=== PATIENT | male | born 1965 | race Hispanic/Latino ===

== ENCOUNTER 2018-03-26 15:10 | Emergency (ER) | payer MEDICAID ==
[~2018-03-26 15:10] MED LIST: ESOM20CA31 PO
[2018-03-26] MEDS ORDERED: SODIUM CHLORIDE 0.9% 1000ML 1,000 ML IV ONE (15:34)
[2018-03-26] MEDS ORDERED: ACETAMINOPHEN EXTRA STRENGTH 500 MG TABLET ONE (15:35)
[2018-03-26 15:49] LABS: BASOPHILS % (AUTO) 0.3 % (0.0-5.0); HEMATOCRIT 40.5 % (42-54); LYMPHOCYTES % (AUTO) 5.1 % (21.0-51.0); MEAN CORPUSCULAR HEMOGLOBIN 32.8 pg (27.0-33.0); MEAN CORPUSCULAR HGB CONC 34.2 g/dL (32.0-36.0); MEAN CORPUSCULAR VOLUME 95.8 fL (79-99); MONOCYTES % (AUTO) 4.8 % (3.0-13.0); NEUTROPHILS % (AUTO) 89.8 % (40.0-77.0); PLATELET COUNT (AUTO) 236 K/uL (130-400); RED BLOOD CELL COUNT(AUTO) 4.23 MIL/uL (4.50-6.20); RED CELL DISTRIBUTION WIDTH 13.5 % (11.0-15.5)
[2018-03-26 15:51] LABS: CARBON DIOXIDE 26 mmol/L (21-32); CHLORIDE 103 mmol/L (101-111); CREATININE 1.1 mg/dL (0.5-1.5); GLOMERULAR FILTR. RATE CALC 74 mL/min (>60); GLUCOSE,RANDOM 142 mg/dL (70-105); INR 1.02 (0.85-1.15); PARTIAL THROMBOPLASTIN TIME 24.4 SEC (26.3-35.5); POTASSIUM 3.4 mmol/L (3.5-5.1); PROTHROMBIN TIME 10.7 SEC (9.6-11.6); SODIUM SERUM 139 mmol/L (136-145); UREA NITROGEN, BLOOD 8 mg/dL (7-18)
[2018-03-26 16:08] LABS: RAPID GROUP A STREP NEGATIVE (NEGATIVE)
[2018-03-26 16:12] LABS: ALANINE AMINOTRANSFERASE 23 U/L (12-78); ALBUMIN 3.2 g/dL (3.5-5.0); ASPARTATE AMINOTRANSFERASE 18 U/L (10-37); BILIRUBIN,TOTAL 0.2 mg/dL (0.2-1.0); CREATINE KINASE, TOTAL 102 U/L (21-232); MYOGLOBIN 35 ng/mL (10-92); TROPONIN I < 0.04 ng/mL (0.00-0.06)
[2018-03-26 16:22] LABS: APPEARANCE,URINE Clear (CLEAR); BILIRUBIN,URINE Negative (NEGATIVE); COLOR,URINE Dark Yellow (YELLOW); GLUCOSE, URINE (UA) Negative (NEGATIVE); KETONES,URINE Trace mg/dL (NEGATIVE); LEUKOCYTE ESTERASE ,URINE Negative (NEGATIVE); NITRATE,URINE Negative (NEGATIVE); OCCULT BLOOD,URINE Negative (NEGATIVE); PROTEIN,URINE POS 1+ (NEGATIVE)
[2018-03-26 16:56] LABS: BACTERIA,URINE Rare /HPF (None Seen); MUCUS,URINE Few LPF (None Seen); RBC,URINE None Seen /HPF (0-1); SQUAMOUS EPITHELIAL CELL,UR 0-2 /HPF (0-2); WBC,URINE 0-1 /HPF (0-1)
== END 2018-03-26 17:46 | disposition home or self-care (01) ==
LOC: EDH 15:10
DX: A08.4 Viral intestinal infection, unspecified (principal); R50.9 Fever, unspecified; I10 Essential (primary) hypertension; M19.90 Unspecified osteoarthritis, unspecified site; Z72.0 Tobacco use
CPT/HCPCS: 36415; 71045; 80053; 81001; 82550; 83605; 83874; 84484; 85025; 85610; 85730; 87040 ×2; 87088; 87804 ×2; 87880; 93005; 96360; 99285; J7030

== ENCOUNTER → 2019-01-26 | Outpatient (CLI) | payer MEDICAID | END | disposition home or self-care (01) | LOC: SHCH 08:02 | PROVIDERS: ATTEND Internal Medicine Cardiovascular Disease | DX: I11.9 Hypertensive heart disease without heart failure (principal) | CPT/HCPCS: 93306 ==

== ENCOUNTER 2019-06-28 20:27 | Emergency (ER) | payer MEDICAID ==
[2019-06-28] MEDS ORDERED: ASPIRIN 325 MG TABLET ONE (20:44)
[2019-06-28 20:47] LABS: BASOPHILS % (AUTO) 0.4 % (0.0-5.0); HEMATOCRIT 44.4 % (42-54); LYMPHOCYTES % (AUTO) 27.9 % (21.0-51.0); MEAN CORPUSCULAR HGB CONC 31.8 g/dL (32.0-36.0); MEAN CORPUSCULAR VOLUME 97.6 fL (79-99); MONOCYTES % (AUTO) 7.6 % (3.0-13.0); NEUTROPHILS % (AUTO) 61.7 % (40.0-77.0); PLATELET COUNT (AUTO) 254 K/uL (130-400); RED BLOOD CELL COUNT(AUTO) 4.55 MIL/uL (4.50-6.20); RED CELL DISTRIBUTION WIDTH 13.1 % (11.0-15.5); WHITE BLOOD COUNT (AUTO) 9.2 K/uL (4.8-10.8)
[2019-06-28 21:01] LABS: INR 0.99 (0.85-1.15); PARTIAL THROMBOPLASTIN TIME 23.8 SEC (26.3-35.5); PROTHROMBIN TIME 10.4 SEC (9.6-11.6)
[2019-06-28 21:08] LABS: POTASSIUM 4.1 mmol/L (3.5-5.1)
[2019-06-28 21:13] LABS: ALBUMIN 3.2 g/dL (3.5-5.0); BILIRUBIN,TOTAL 0.1 mg/dL (0.2-1.0); TOTAL PROTEIN, SERUM 6.4 g/dL (6.0-8.3)
[2019-06-28 21:30] LABS: APPEARANCE,URINE Clear (CLEAR); BILIRUBIN,URINE Negative (NEGATIVE); COLOR,URINE Yellow (YELLOW); GLUCOSE, URINE (UA) Negative (NEGATIVE); KETONES,URINE Trace mg/dL (NEGATIVE); LEUKOCYTE ESTERASE ,URINE Negative (NEGATIVE); NITRATE,URINE Negative (NEGATIVE); OCCULT BLOOD,URINE Negative (NEGATIVE); PH,URINE 5.5 (5.0-8.0); PROTEIN,URINE Negative (NEGATIVE)
[2019-06-28 21:37] LABS: AMPHET/METH SCREEN,URINE NEGATIVE (NEGATIVE); BARBITURATE SCREEN, URINE NEGATIVE (NEGATIVE); BENZODIAZEPINES SCREEN,URINE NEGATIVE (NEGATIVE); CANNABINOID SCREEN,URINE NEGATIVE (NEGATIVE); COCAINE SCREEN,URINE POSITIVE (NEGATIVE); OPIATE SCREEN,URINE NEGATIVE (NEGATIVE); PHENCYCLIDINE SCREEN,URINE NEGATIVE (NEGATIVE)
[2019-06-28 22:04] LABS: BACTERIA,URINE Few /HPF (None Seen); MUCUS,URINE Moderate LPF (None Seen); SQUAMOUS EPITHELIAL CELL,UR 0-2 /HPF (0-2)
== END 2019-06-28 21:36 | disposition left against medical advice (07) ==
LOC: EDH 20:27
DX: F14.10 Cocaine abuse, uncomplicated (principal); I10 Essential (primary) hypertension; M19.90 Unspecified osteoarthritis, unspecified site; Z72.0 Tobacco use
CPT/HCPCS: 36415; 71045; 80053; 80305; 81001; 82550; 84484; 85025; 85610; 85730; 93005

== ENCOUNTER → 2019-07-23 | Outpatient (CLI) | payer MEDICAID | END | disposition home or self-care (01) | LOC: SHCH 07:59 | PROVIDERS: ATTEND Internal Medicine Cardiovascular Disease | DX: R09.89 Other specified symptoms and signs involving the circulatory and respiratory systems (principal) | CPT/HCPCS: 93880 ==

== ENCOUNTER → 2023-03-14 | Outpatient (CLI) | payer MEDICAID ==
[~2023-03-14] MED LIST changes: +REGADENOSON 0.4 MG/5 ML PF SYG IVP ONE
== END | disposition home or self-care (01) ==
LOC: SHCH 09:11
PROVIDERS: ATTEND Internal Medicine Cardiovascular Disease
DX: R94.39 Abnormal result of other cardiovascular function study (principal); I50.22 Chronic systolic (congestive) heart failure; I51.7 Cardiomegaly
CPT/HCPCS: 78452; 96374; 93017; J2785; A9500 ×2

== ENCOUNTER 2023-03-31 06:07 | Day surgery (SDC) | payer MEDICAID ==
[2023-03-30 09:06] VITALS: BP 107/70; PULSE 80; RESP 17
[2023-03-30 09:18] LABS: BASOPHILS # (AUTO) 0.04 K/uL (0.00-0.20); BASOPHILS % (AUTO) 0.5 % (0.0-5.0); EOSINOPHILS % (AUTO) 2.6 % (0.0-8.0); IMMATURE GRANULOCYTE ABSOLUTE 0.03 K/uL (0-1); LYMPHOCYTES # (AUTO) 1.9 K/uL (1.0-4.8); LYMPHOCYTES % (AUTO) 23.7 % (21.0-51.0); MEAN CORPUSCULAR HGB CONC 32.6 g/dL (32.0-36.0); MEAN CORPUSCULAR VOLUME 101.1 fL (79-99); MONOCYTES # (AUTO) 0.7 K/uL (0.1-1.0); MONOCYTES % (AUTO) 9.1 % (3.0-13.0); NEUTROPHILS % (AUTO) 63.7 % (40.0-77.0); PLATELET COUNT (AUTO) 259 K/uL (130-400); RED BLOOD CELL COUNT(AUTO) 4.55 MIL/uL (4.50-6.20); RED CELL DISTRIBUTION WIDTH 14.2 % (11.0-15.5); WHITE BLOOD COUNT (AUTO) 7.8 K/uL (4.8-10.8)
[2023-03-30 09:27] LABS: POTASSIUM 4.3 mmol/L (3.5-5.1)
[2023-03-30 09:29] LABS: INR 0.99 (0.85-1.15); PROTHROMBIN TIME 11.5 SEC (9.6-11.6)
[2023-03-30 09:30] LABS: PARTIAL THROMBOPLASTIN TIME 27.4 SEC (26.3-35.5)
[2023-03-31] VITALS (11 sets, daily range): BP systolic 107–127; BP diastolic 58–74; PULSE 62–77; RESP 12–18
[~2023-03-31] VITALS: Ht 177.8 cm; Wt 112.9 kg
[~2023-03-31 06:07] MED LIST changes: -ESOM20CA31 PO; +FURO40TA5 PO; +LOSA25TA41 PO; +METO-408 PO; +NITR0.4T50 SL; +PANT40TA54 PO; -REGADENOSON 0.4 MG/5 ML PF SYG IVP ONE; +SPIR25TA6 PO; +SPIRIVA IH
[2023-03-31] MEDS ORDERED: 0.9%NACL 1000ML 1,000 ML IV ONE (06:54)
[2023-03-31] MEDS ORDERED: LIDOCAINE HCL 400MG/20ML VIAL ONE (07:07)
[2023-03-31] MEDS ORDERED: HEPARIN 10,000 UNIT/10ML (1,000 UNIT/ML) VIAL ONE (07:08)
[2023-03-31] MEDS ORDERED: NICARDIPINE 25MG INJ IV ONE (07:08)
[2023-03-31] MEDS ORDERED: NITROGLYCERIN 50MG VIAL ONE (07:09)
[2023-03-31] MEDS ORDERED: IOHEXOL 350 MG/ML 100ML INFUS..BTL IV ONE (07:09)
[2023-03-31] MEDS ORDERED: FENTANYL CITRATE PF 50 MCG/1 ML 2ML VIAL ONE (07:22)
[2023-03-31] MEDS ORDERED: MIDAZOLAM HCL 1 MG/ML 2ML VIAL ONE (07:23)
[2023-03-31] MEDS ORDERED: GLUCAGON 1MG KIT 1 MG ML IM PRN (09:00)
[2023-03-31] MEDS ORDERED: DEXTROSE 50%-WATER 50 ML DISP.SYRIN IV PRN (09:00)
== END 2023-03-31 14:08 | disposition home or self-care (01) ==
LOC: DAH 06:07
PROVIDERS: ATTEND Internal Medicine Cardiovascular Disease
DX: I25.119 Atherosclerotic heart disease of native coronary artery with unspecified angina pectoris (principal); I50.42 Chronic combined systolic (congestive) and diastolic (congestive) heart failure; I42.8 Other cardiomyopathies; E66.9 Obesity, unspecified; G47.33 Obstructive sleep apnea (adult) (pediatric); F17.200 Nicotine dependence, unspecified, uncomplicated; F14.10 Cocaine abuse, uncomplicated; F19.10 Other psychoactive substance abuse, uncomplicated; Z86.16 Personal history of COVID-19; Z90.49 Acquired absence of other specified parts of digestive tract; Z98.890 Other specified postprocedural states; Z72.89 Other problems related to lifestyle; Z79.01 Long term (current) use of anticoagulants; Z79.899 Other long term (current) drug therapy
CPT/HCPCS: 80048; 85025; 85610; 85730; 36415; 71045; 93005; 93454; C1894 ×2; C1760; J3010; J3490 ×2; J7030; J1644 ×2; J2250; Q9967; A4215; A4222; A4221; A4663; A4216; A4606; Q9965; A4223 ×3; 99156; 99157

== ENCOUNTER 2025-04-21 17:04 | Emergency (ER) | payer MEDICAID ==
[~2025-04-21] VITALS: Ht 177.8 cm; Wt 154.2 kg
[~2025-04-21 17:04] MED LIST changes: +BUME2TAB5 PO; +DAPA10TA PO; -FURO40TA5 PO; -LOSA25TA41 PO; +METO-391 PO; -METO-408 PO; -NITR0.4T50 SL; -PANT40TA54 PO; +SACU1TAB7 PO; -SPIRIVA IH
[2025-04-21] MEDS ORDERED: SODIUM BICARB 8.4% 50ML SYRINGE IVP ONE (17:05)
[2025-04-21] MEDS ORDERED: CACL 1GM SYG IVP ONE (17:05)
[2025-04-21] MEDS ORDERED: DEXTROSE 50%-WATER 50 ML DISP.SYRIN IV ONE (17:05)
--- NOTE | 2025-04-21 17:06 | NUR ---
NO PULSE UPON ARRIVAL. CODE BLUE ACTIVATED.
--- NOTE | 2025-04-21 17:12 | NUR ---
EMS VITAL SIGNS 147/72, HR 42, BLOOD GLUCOSE 90, NO RESPS, NO SATS
[2025-04-21] MEDS: NOREPINEPHRIN 4MG/NS 250ML 250 ML IV ONE (17:23)
--- NOTE | 2025-04-21 17:24 | NUR ---
LEVOPHED NOT ADMINISTERED, UANBLE TO GET A PULSE
--- NOTE | 2025-04-21 17:36 | ERN ---
General Chief Complaint: Resp Arrest Stated Complaint: RESP ARREST Time Seen by MD: 17:25 Source: EMS History of Present Illness Initial Comments PATIENT IS A 59 BROUGHT HIM BE SECONDARY TO RESPIRATORY DISTRESS. UPON EVALUATION IN TRIAGE PATIENT DID NOT HAS A PULSE CODE BLUE WAS CALLED. PER EMS PATIENT WAS FOUND HAS BEEN RESPIRATORY DISTRESS BROUGHT IN FOR FURTHER EVALUATION. Allergies: Coded Allergies: No Known Allergies (Unverified Allergy, Unknown, 12/31/14) Home Meds Active Scripts Dapagliflozin Propanediol (Farxiga) 10 Mg Tablet, 1 TAB PO DAILY for 30 Days, #30 TAB 3 Refills Prov:SARMAD CONTRERAS CANE PILER 09/02/24 Metoprolol Succinate (Metoprolol Succinate) 50 Mg Tab.er.24h, 1 TAB PO DAILY for 30 Days, #30 TAB 3 Refills Prov:SARMAD CONTRERAS CANE PILER 09/02/24 Sacubitril/Valsartan (Entresto 49 mg-51 mg Tablet) 49 Mg-51 Mg Tablet, 0.5 TAB PO BID, #60 TAB 2 Refills Prov:SARMAD CONTRERAS CANE PILER 09/02/24 Reported Medications Bumetanide (Bumetanide) 2 Mg Tablet, 1 TAB PO BID for 30 Days, #60 TAB 0 Refills 08/02/24 Spironolactone (Spironolactone) 25 Mg Tablet, 25 MG PO BID, TAB 03/30/23 Past Medical History Past Medical History: CHF, COPD, Hypertension Medical History Other: Dilated cardiomyopathy EF 15-20% in 2022 Past Surgical History: Appendectomy Social History Social History: Drugs ROS Dictation UNABLE TO PERFORM DUE TO PATIENT BEING IN CARDIAC ARREST Physical Exam Physical Exam Dictation IN CARDIAC ARREST Results Laboratory and Microbiology Labs Reviewed?: Yes MDM MDM: DIFFERENTIAL DIAGNOSIS: CARDIAC ARREST, RATIONALE: TESTS CONSIDERED AND ORDERED SECONDARY TO SHARED DECISION MAKING INCLUDE: PATIENT IS A 60-YEAR-OLD MALE BROUGHT IN BY EMS SECONDARY TO RESPIRATORY DISTRESS UPON EVALUATION PATIENT WAS FOUND TO BE PULSELESS. CODE BLUE WAS CALLED MULTIPLE ROUNDS OF EPINEPHRINE AND CHEST COMPRESSIONS WERE PERFORMED NO POST RETRIEVE. AFTER SIX DOSES OF EPINEPHRINE FOUND WITH A CHEST COMPRESSIONS NO PULSELESS FOUND. ED Course Orders Procedure Category Date Status Time Norepinephrin 4mg/Ns PHA 04/21/25 Complete 250ml (Levophed 4mg 17:15 Current Medications Medications (Trade) Dose Ordered Sig/Christine Route PRN Reason Start Time Stop Time Status Last Admin Dose Admin Norepinephrine 250 ml @ As Directed STK-MED ONCE IV 04/21/25 17:15 04/21/25 17:15 DC DX & DISP Disposition: Departure Impression: Primary Impression: Cardiac arrest Condition: Referrals: SENTHIL MURCIA (PCP) Time of Disposition: 18:07 DIRK LOPEZ MD Apr 21, 2025 17:36
--- NOTE | 2025-04-21 18:04 | NUR ---
[id number] SPOKE TO MONSTER CARRILLO FROM [facility], 1960 CALL BACK FROM ERAN VENTURA,[employer] ATTENDANT, STATES OF NOW PT MEETS CRITERIA AND STATES WILL BE CONTACTING FAMILY AND THEN THEY WILL CALL BACK FOR UPDATE IN 20 MINUTES. PER CAT CARRILLO, STATES NO AUTOPSY IS WANTED.
--- NOTE | 2025-04-21 18:09 | NUR ---
RUTHIE KIM [phone] COLLECTED PATIENT'S BELONGINGS
--- NOTE | 2025-04-21 18:09 | NUR ---
[facility] CHOSEN BY FAMILY.
== END 2025-04-21 19:34 ==
LOC: EDH 17:04
DX: I46.9 Cardiac arrest, cause unspecified (principal); I11.0 Hypertensive heart disease with heart failure; I50.9 Heart failure, unspecified; J44.9 Chronic obstructive pulmonary disease, unspecified; Z79.84 Long term (current) use of oral hypoglycemic drugs; Z79.899 Other long term (current) drug therapy; Z90.49 Acquired absence of other specified parts of digestive tract
CPT/HCPCS: 99285; 92950; J3490 ×3; J2312; J7070; J0169